=== PATIENT | male | born 1990 | race Two or more races ===

== ENCOUNTER 2018-12-03 01:24 | Emergency (ER) | payer SELFPAY ==
[2018-12-03] MEDS ORDERED: Ketorolac 60 MG/2 ML SDV IM ONE (01:50)
--- NOTE | 2018-12-03 01:53 | EDM.PDOC ---
ED HPI GENERAL MEDICAL PROBLEM - General Chief Complaint: ENT Problem Stated Complaint: MEDICAL [facility] Time Seen by Provider: 12/03/18 01:40 Source of Information: Reports: Patient, Family, RN Notes Reviewed History Limitations: Reports: No Limitations - History of Present Illness INITIAL COMMENTS - FREE TEXT/NARRATIVE: 28-year-old gentleman presents emergency department today complaint of dental pain, he states the pain is quite severe is causing pain in his ear and jaw no fever Right Face/Facial Pain Score (Numeric/FACES): 8 - Related Data Allergies Allergy/AdvReac Type Severity Reaction Status Date / Time Penicillins Allergy Anaphylactic Verified 12/03/18 01:29 Shock Home Meds: Home Meds NK [No Known Home Meds] 12/03/18 [History] Past Medical History HEENT History: Reports: Impaired Vision Neurological History: Reports: Headaches, Chronic, Migraines Endocrine/Metabolic History: Reports: Obesity/BMI 30+ - Past Surgical History Head Surgeries/Procedures: Reports: None HEENT Surgical History: Reports: Tonsillectomy GI Surgical History: Reports: EGD Endocrine Surgical History: Reports: None Neurological Surgical History: Reports: None Dermatological Surgical History: Reports: None Social & Family History - Tobacco Use Smoking Status *Q: Current Every Day Smoker Years of Tobacco use: 9 Packs/Tins Daily: 1 Used Tobacco, but Quit: No - Caffeine Use Caffeine Use: Reports: Soda - Recreational Drug Use Recreational Drug Use: Yes Drug Use in Last 12 Months: Yes Recreational Drug Type: Reports: Marijuana/Hashish ED ROS ENT - Review of Systems Review Of Systems: See Below Constitutional: Denies: Fever HEENT: Reports: Dental Pain Respiratory: Reports: No Symptoms Cardiovascular: Reports: No Symptoms ED EXAM, ENT - Physical Exam Exam: See Below Exam Limited By: No Limitations General Appearance: Alert, WD/WN, No Apparent Distress Mouth/Throat: Dental Pain Respiratory/Chest: No Respiratory Distress ED ENT PROCEDURES - Additional/Other Procedure(s) Other (Free Text) Procedure(s): Preoperative diagnosis infra-alveolar nerve block indicated for severe dental pain Postoperative diagnosis same Surgeon [place] OfficerMD Verbal consent was obtained prior to procedure risks and benefits were discussed patient is in agreement and wishes to proceed. Anesthesia 1 mL of bupivacaine Estimated blood loss none Specimens none Summary procedure: Timeout was performed prior to initiation procedure identified correct site, correct patient and correct procedure. Topical anesthesia let was used to anesthetize the area next dental procedure was performed rock smaller 1 mL of bupivacaine was injected into the area to anesthetize the inferior alveolar nerve provide pain relief, next 10 temp custom filling was provided into the decayed tooth, suspicion was the tooth was so decayed that the nerve root was being exposed causing severe pain Complications none apparent Disposition referred to dentistry as soon as possible Course - Vital Signs Last Recorded V/S: Last Vital Signs Temp 98.6 F 12/03/18 01:32 Pulse 85 12/03/18 01:32 Resp 16 12/03/18 01:32 BP 162/92 H 12/03/18 01:32 Pulse Ox 99 12/03/18 01:32 - Orders/Labs/Meds Labs: Laboratory Tests 12/03/18 Range/Units 01:56 Urine Opiates Screen Negative (NEGATIVE) Ur Oxycodone Screen Negative (NEGATIVE) Urine Methadone Screen Negative (NEGATIVE) Ur Propoxyphene Screen Negative (NEGATIVE) Ur Barbiturates Screen Negative (NEGATIVE) Ur Tricyclics Screen Negative (NEGATIVE) Ur Phencyclidine Scrn Negative (NEGATIVE) Ur Amphetamine Screen Negative (NEGATIVE) U Methamphetamines Scrn Negative (NEGATIVE) Urine MDMA Screen Negative (NEGATIVE) U Benzodiazepines Scrn Negative (NEGATIVE) U Cocaine Metab Screen Negative (NEGATIVE) U Marijuana (THC) Screen Negative (NEGATIVE) Meds: Medications Discontinued Medications Generic Name Dose Route Start Last Admin Trade Name Gurdeepq PRN Reason Stop Dose Admin Bupivacaine HCl/Epinephrine Bitart 1.8 ml 12/03/18 02:39 12/03/18 02:43 Marcaine 0.5%/Epinephrine 1:200,000 INJECT 12/03/18 02:40 1.8 ml ONETIME ONE Administration Denture Adhesive 1 applic 12/03/18 02:41 12/03/18 02:46 Dentemp Custom DENT 12/03/18 02:42 1 applic ONETIME ONE Administration Ketorolac Tromethamine 60 mg 12/03/18 01:50 12/03/18 01:58 Toradol IM 12/03/18 01:51 60 mg ONETIME ONE Administration Lidocaine/Tetracaine 5 ml 12/03/18 02:48 12/03/18 03:04 Let Soln TOP 12/03/18 02:49 5 ml ONETIME ONE Administration Departure - Departure Time of Disposition: 03:24 Disposition: Home, Self-Care 01 Condition: Fair Clinical Impression: Dental caries, Pain, dental - Discharge Information Referrals: PCP,None [Primary Care Provider] - Forms: ED Department Discharge Additional Instructions: Use hydrocodone as needed for pain control, Please followup with your dentistry as soon as possible - Assessment/Plan Plan: Assessment Acuity = acute Site and laterality = severe dental pain tooth #31 Etiology = dental caries Manifestations = none Location of injury = Home Lab values = none Plan Good relief from the dental block and temporary filling, follow-up with dentistry as soon as possible prescription written for hydrocodone 5/325 one tab by mouth 3 times a day when necessary total #10 This note was dictated using [employer] voice recognition software please call with any questions on syntax or grammar.
[2018-12-03] MEDS ORDERED: Bupivacaine 0.5%/EPINEPHrine 1:200,000 1.8 ML Cartridge INJECT ONE (02:39)
[2018-12-03] MEDS ORDERED: Dental Adhesive 1 Tube DENT ONE (02:41)
[2018-12-03] MEDS ORDERED: Lidocaine/EPINEPHrine/Tetracaine Soln 5 ML Each TOP ONE (02:48)
== END 2018-12-03 03:34 | disposition home or self-care (01) ==
LOC: JP.ED 01:24
DX: K02.9 Dental caries, unspecified (principal); F17.210 Nicotine dependence, cigarettes, uncomplicated; Z88.0 Allergy status to penicillin; E66.9 Obesity, unspecified; Z68.30 Body mass index [BMI] 30.0-30.9, adult
CPT/HCPCS: 64400; 80305; 96372; 99282; A9270; J1885; J3490; 99283